=== PATIENT | male | born 1990 | race Asian ===

== ENCOUNTER 2016-09-01 01:28 | Emergency (ER) | payer OTHER ==
[~2016-09-01] VITALS: Ht 170.2 cm; Wt 71.2 kg
[~2016-09-01 01:28] MED LIST: ALBUTEROL SULFAT3 M1 INH; ALBUTEROL0.09 MG/A1 INH; AMOXICILLIN875 MG PO; AMOXIL500 MG PO; AUGMENTIN 875 M1 TAB PO; BACTRIM DS 8001 TAB PO; MEDROL DOSEPAK1 PAC PO; MOTRIN800 MG PO; PREDNISONE50 MG PO; PROAIR HFA0.09 MG/Ac INH; ROBITUSSIN W/CO10 ML PO; TESSALON PERLE100 MG PO
--- NOTE | 2016-09-01 01:50 | ED DYSPNEA/ASTHMA COMPLAINT ---
History of Present Illness General Chief Complaint: Dyspnea (COPD, CHF, Other) Stated Complaint: DIFF BREATHING,HX OF ASTHMA Source: patient, friend Exam Limitations: no limitations Vital Signs & Intake/Output Vital Signs & Intake/Output Vital Signs Date Time Temp Pulse Resp B/P B/P Pulse O2 O2 Flow FiO2 Mean Ox Delivery Rate 09/01 0327 100 Room Air 09/01 0318 98.2 69 18 120/78 99 Room Air 09/01 0204 100 09/01 0146 98.6 75 18 149/83 99 Room Air Allergies Coded Allergies: NO KNOWN ALLERGIES (05/22/15) Reconcile Medications Albuterol Sulfate (Albuterol Sulfate Hfa) 90 MCG HFA.AER.AD 2 PUFF INH Q4-6 PRN PRN ASTHMA (Reported) 90 MCG PER PUFF AMOXICILLIN/POTASSIUM CLAV (Augmentin 875-125 Tablet) 875 MG/125 MG TAB 1 TAB PO BID BRONCHITIS Benzonatate (Tessalon Perle) 100 MG SGL 1 TAB PO TID COUGH Methylprednisolone. (Medrol) 1 PAC PAC 1 PAC PO AD INFLAMMATION Prednisone 50 MG TAB 1 TAB PO QDAY ASTHMA Robitussin AC (Guaifenesin-Codeine Syrup) 10 ML UDC 5 ML PO Q6 COUGH Triage Note: PT TO ED C/O ASTHMA EXACERBATION FOR 2 DAYS. HAS USED ALBUTEROL INH AND NEBULIZER AT HOME WITH NO RELIEF. O2 SAT 100% ON RA. Triage Nurses Notes Reviewed? yes Onset: Abrupt Duration: week(s): (1) Timing: recent history Severity: mild, moderate Activities at Onset: none HPI: This is a 26 red male with history of asthma who presents to the ER with chief complaint of not feeling well for the past week. He states his heart and getting a deep breath in. No fever or chills. Denies any productive cough. He took his albuterol inhaler tonight with some relief. He is a patient of Dr. Gamble. Denies smoking any cigarettes. States he has been under a lot of stress at work. He is unsure if anxiety may be playing a role as he denies chest pain. Denies any illicit drug use. Past History Travel History Traveled to [place] past 21 day No Medical History Any Pertinent Medical History? 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 No Review of Systems Review of Systems Constitutional: Denies: chills, fever. EENTM: Reports: no symptoms. Respiratory: Reports: orthopnea, short of breath. Denies: cough, sputum production. Cardiovascular: Denies: chest pain, palpitations, peripheral edema, syncope. GI: Denies: abdominal pain. Genitourinary: Reports: no symptoms. Musculoskeletal: Reports: no symptoms. Skin: Reports: no symptoms. Neurological/Psychological: Reports: no symptoms. Hematologic/Endocrine: Denies: bruising, bleeding, polyuria, polydipsia. Immunologic/Allergic: Denies: splenectomy. All Other Systems: Reviewed and Negative Physical Exam Physical Exam General Appearance: alert, awake, anxious, mild distress, thin Head: atraumatic, normal appearance Eyes: Bilateral: normal appearance, PERRL, EOMI. Ears, Nose, Throat: normal pharynx, normal ENT inspection, hearing grossly normal Neck: normal inspection, supple, full range of motion Respiratory: normal breath sounds, chest non-tender, no respiratory distress Cardiovascular: regular rate/rhythm Peripheral Pulses: 2+ radial (R), 2+ radial (L) Neurologic/Psych: no motor/sensory deficits, awake, alert, oriented x 3, ANXIOIUS Skin: intact, normal color, warm/dry Core Measures ACS in differential dx? No Severe Sepsis Present: No Septic Shock Present: No Progress Differential Diagnosis: asthma, pulmonary embolism, pneumonia, pneumothorax Plan of Care: Orders Procedure Date/time Status RT ED ORDERS 09/01 157 Active EKG 09/01 156 Active PATIENT REPORTS SOME IMPROVEMENT AFTER DUONEB. VERY SLIGHT INCREASE IN BREATH SOUNDS. CXR PENDING. CXR WNL. PATIENT WILL FOLLOW UP WITH PCP IN THE OFFICE. (KIYA LEDBETTER,BEA) Diagnostic Imaging: Viewed by Me: Radiology Read. Discussed w/RAD: Radiology Read. CXR Impression: PATIENT: LANCE ORELLANA PRESENT AGE: 26 PATIENT ACCOUNT NO: [id number] : 91 LOCATION: [facility] ORDERING PHYSICIAN: BEA HUERTAS MD SERVICE DATE: 09/01/167 EXAM TYPE: RAD - XRY-CHEST XRAY , PA AND LATERAL EXAMINATION: XR CHEST CLINICAL INFORMATION: Chest tightness/ dyspnea COMPARISON: None TECHNIQUE: 2 views of the chest were obtained. FINDINGS : The lungs are clear with no focal consolidation. No evidence of pneumothorax, pulmonary edema, or pleural effusions. The cardiomediastinal silhouette is unremarkable. No acute osseous findings. IMPRESSION: No acute cardiopulmonary findings. DICTATED BY: STACIE BERMUDEZ MD DATE/TIME DICTATED:09/01/16314 JOB FOREMAN:PAULETTE DATE/TIME TRANSCRIBED:09/01/16314 CONFIDENTIAL, DO NOT COPY WITHOUT APPROPRIATE AUTHORIZATION. <Electronically signed in Other Vendor System> SIGNED BY: STACIE BERMUDEZ MD 09/01/16 0320 Initial ED EKG: NSR, abnormal Q waves (INFERIOR) Departure Departure Time of Disposition: 324 Disposition: HOME OR SELF CARE Condition: Stable Clinical Impression Primary Impression: Dyspnea Referrals: UNKNOWN (PCP/Family) Additional Instructions: Please continue your rescue inhaler as directed as well as her other prescriptions from Dr. Jacobs. Please follow-up with him in the office. Return to the ER for any changing or worsening symptoms. Departure Forms: Customer Survey General Discharge Information Critical Care Note Critical Care Note Critical Care Time: non-applicable
[2016-09-01 03:18] VITALS: BP 120/78
--- NOTE | 2016-09-01 03:20 | RADIOLOGY REPORT ---
EXAMINATION: XR CHEST CLINICAL INFORMATION: Chest tightness/dyspnea COMPARISON: None TECHNIQUE: 2 views of the chest were obtained. FINDINGS: The lungs are clear with no focal consolidation. No evidence of pneumothorax, pulmonary edema, or pleural effusions. The cardiomediastinal silhouette is unremarkable. No acute osseous findings. IMPRESSION: No acute cardiopulmonary findings.
== END 2016-09-01 03:30 ==
LOC: ERH 01:28
DX: R06.00 Dyspnea, unspecified (principal)
CPT/HCPCS: 1263; 1395; 93005; 93010

== ENCOUNTER 2016-10-31 20:22 | Emergency (ER) | payer OTHER ==
[~2016-10-31] VITALS: Ht 170.2 cm; Wt 69.4 kg
--- NOTE | 2016-10-31 21:05 | ED CARDIAC/CP/PALPITATIONS ---
History of Present Illness General Chief Complaint: Chest Pain Stated Complaint: BACK AND CHEST PAIN, WORSE WITH INSPIRATION Source: patient, old records Exam Limitations: no limitations Vital Signs & Intake/Output Vital Signs & Intake/Output Vital Signs Date Time Temp Pulse Resp B/P B/P Pulse O2 O2 Flow FiO2 Mean Ox Delivery Rate 10/315 97 10/31 2040 97.8 70 18 129/73 97 Room Air Allergies Coded Allergies: NO KNOWN ALLERGIES (05/22/15) Reconcile Medications Albuterol Sulfate (Proair Hfa) 90 MCG HFA.AER.AD 2 PUF INH AD PRN ASTHMA ( Reported) Budesonide/Formoterol Fumarate (Symbicort 80-4.5 Mcg Inhaler) 80 MCG-4.5 MCG/ ACTUATION HFA.AER.AD 2 PUF INH BID ASTHMA (Reported) Ibuprofen 600 MG TABLET 1 TAB PO Q6PRN PRN pain with food Prednisone 20 MG TABLET 1 TAB PO BID asthma Tramadol HCl (Ultram) 50 MG TABLET 1-2 TAB PO Q6PRN PRN severe pain Triage Note: PT TO ED WITH COMPLAINTS OF CHEST TIGHTNESS WITH INSPIRATION ALONG WITH BACK PAIN. PT ENDORSES GOING TO THE GYM AND INCREASING HIS WEIGHTS RECENTLY AND WHEN HE OVER EXERTS HIMSELF IS WHEN HE NOTICES THE CHEST TIGHTNESS. PT ALSO COMPLAINS OF A RECENT COUGH. DR AMADO AT BEDSIDE FOR EVAL. Triage Nurses Notes Reviewed? yes Onset: several days Duration: day(s):, constant, continues in ED Timing: recent history Quality/Severity: moderate Location: central Radiation: back Activities at Onset: activity Prior Chest Pain/Card Workup: non-cardiac Modifying Factors: Improves With: rest. Worsens With: breathing, coughing, exercise, movement. Nitro Today/Relief: no nitro taken today Aspirin Today: no aspirin today Associated Symptoms: back pain, shortness of breath HPI: Several days prior to admission patient complains of congestion nonproductive cough shortness of breath increasing right-sided chest and back pain described as sharp occurring with exertion cough deep breath. He noted increasing pain after increasing his workout weights. He denies fever chills nausea vomiting diarrhea abdominal pain headache dysuria rash bleeding. Past History Travel History Traveled to [place] past 21 day No Medical History Any Pertinent Medical History? 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 No Review of Systems Review of Systems Constitutional: Reports: no symptoms. EENTM: Reports: see HPI, nasal congestion. Respiratory: Reports: see HPI, cough, short of breath, wheezing. Cardiovascular: Reports: see HPI, chest pain. GI: Reports: no symptoms. Genitourinary: Reports: no symptoms. Musculoskeletal: Reports: see HPI, back pain. Skin: Reports: no symptoms. Neurological/Psychological: Reports: no symptoms. Hematologic/Endocrine: Reports: no symptoms. Immunologic/Allergic: Reports: no symptoms. All Other Systems: Reviewed and Negative Physical Exam Physical Exam General Appearance: well developed/nourished, alert, awake, anxious, comfortable Head: atraumatic, normal appearance Eyes: Bilateral: normal appearance, PERRL, EOMI. Ears, Nose, Throat: normal pharynx, normal ENT inspection Neck: normal inspection, supple, full range of motion, no midline tenderness Respiratory: no respiratory distress, quiet respiration, decreased breath sounds , right anterior chest wall tenderness Cardiovascular: regular rate/rhythm, normal peripheral pulses, norml femoral pulses equa Peripheral Pulses: 4+ carotid (R), 4+ carotid (L) Gastrointestinal: normal bowel sounds, soft, non-tender, no organomegaly Back: normal inspection, normal range of motion Extremities: normal inspection, normal capillary refill, normal range of motion, no edema Neurologic/Psych: no motor/sensory deficits, awake, alert, oriented x 3, normal gait, normal mood/affect, 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 Skin: intact, normal color, warm/dry Lymphatic: no anterior cervical ananth Core Measures ACS in differential dx? No Severe Sepsis Present: No Septic Shock Present: No Progress Differential Diagnosis: pneumonia, pneumothorax Plan of Care: Orders Procedure Date/time Status XRY-CHEST XRAY, PA AND LATERAL 10/31 2041 Active Diagnostic Imaging: Viewed by Me: Radiology Read. Discussed w/RAD: Radiology Read. Radiology Impression: no acute abnormality Pre-Hospital EKG: none Initial ED EKG: none Departure Departure Time of Disposition: 2127 Disposition: HOME OR SELF CARE Condition: Stable Clinical Impression Primary Impression: Asthma with acute exacerbation in adult Secondary Impressions: Acute chest wall pain Referrals: FRANCISCO LEDBETTER,URMILA Elena (PCP/Family) Departure Forms: Customer Survey General Discharge Information RELEASE- WORK Prescriptions: Current Visit Scripts Ibuprofen 1 TAB PO Q6PRN PRN pain #50 TAB with food Tramadol HCl (Ultram) 1-2 TAB PO Q6PRN PRN severe pain #30 TAB Prednisone 1 TAB PO BID #10 TAB Baclofen 1-2 TAB PO TID PRN muscle strain #30 TAB Critical Care Note Critical Care Note Critical Care Time: non-applicable
--- NOTE | 2016-10-31 21:12 | RADIOLOGY REPORT ---
EXAMINATION: XR CHEST CLINICAL INFORMATION: Chest pain. COMPARISON: Chest x-ray 09/01/2016 TECHNIQUE: 2 views of the chest were obtained. FINDINGS: No significant abnormality is noted involving the heart, lungs, mediastinum, bony thorax or soft tissues. IMPRESSION: Unremarkable examination.
[2016-10-31] MEDS ORDERED: SYMBICORT 80-10.2 GM INH (21:29)
[2016-10-31] MEDS ORDERED: PROAIR HFA8.5 GM INH (21:30)
[2016-10-31] MEDS ORDERED: IBUPROFEN600 M1 PO (21:31)
[2016-10-31] MEDS ORDERED: ULTRAM50 M1 PO (21:31)
[2016-10-31] MEDS ORDERED: PREDNISONE20 M1 PO (21:31)
[2016-10-31] MEDS ORDERED: BACLOFEN10 M1 PO (21:37)
[2016-10-31 21:55] VITALS: BP 126/70
== END 2016-10-31 21:57 ==
LOC: ERH 20:22
DX: J45.901 Unspecified asthma with (acute) exacerbation (principal); R07.89 Other chest pain
CPT/HCPCS: 1263